=== PATIENT | female | born 1945 | race Caucasian/White ===

== ENCOUNTER 2016-11-06 07:22 | Inpatient (IN) | payer OTHER ==
[2016-11-06] VITALS (7 sets, daily range): BP systolic 109–143; BP diastolic 53–86
[~2016-11-06] VITALS: Ht 149.9 cm; Wt 57.3 kg
--- NOTE | 2016-11-06 07:48 | Progress Note ---
Subjective General Admission History and Physical Examination Patient Name: Larisa Medellin Admission Date: November 06, 2016 Primary Care Provider: Unknown Attending Physician: Braden Godwin M.D. Admitting Physician: Sudhir Stein M.D. SUBJECTIVE Historian: Patient, prior medical records Reliability: Poor Chief Complaint: Shortness of breath History of Present Illness: The patient is a 71-year-old white female with a significant past medical history of developmental delay who presented to [facility] as a transfer patient from [facility] ER secondary to respiratory failure. Secondary to the above, the patient was admitted by Sudhir Stein M.D. for further evaluation and treatment. The history of present illness apparently began on the day of admission when the patient had URI symptoms with associated cough and shortness of breath. Secondary to this, [facility]. Evaluation that time was consistent with viral URI with associated bronchospasm and hypoxemia. Secondary to the above the patient was transferred to [facility] for inpatient evaluation and treatment. No other history available at this time. PAST MEDICAL HISTORY Illnesses: 1. Developmental delay 2. Hypertension 3. Osteoporosis 4. Anemia Allergies: 1. Sulfa Medications: 1. Colace 100 mg by mouth daily 2. Lorazepam 0.5 mg by mouth twice a day when necessary agitation 3. Seroquel 25 mg by mouth twice a day 4. Rozerem 8 mg by mouth daily at bedtime when necessary Surgery: 1. None Injuries: 1. No significant Hospitalizations: 1. None FAMILY HISTORY Parents: 1. Father, , 46, cause unknown, 2. Mother, , 74, CHF Siblings: 1. Female, living, 78, healthy 2. Male, living, 61, COPD Children: 1. None Other significant family history: History of leukemia SOCIAL HISTORY 1. Marital Status: Single 2. Mormonism: None 3. Education: None 4. Employment History: None 5. Occupational health exposures: None HABITS 1. Tobacco: None 2. Drugs: None 3. Alcohol: None 4. Caffeine: None HEALTH SUPERVISION Item/Test 1. Unknown IMMUNIZATIONS: 1. Pneumococcal: Unknown 2. Influenza: Unknown 3. Tetanus: Unknown REVIEW OF SYSTEMS Remarkable for those things stated in the history of present illness and past medical history. Seventeen point review of system completed with the following notable findings: Unobtainable secondary to patient's mental status/developmental delay Physical Exam Vital Signs / I&Os Vital Signs Date Time Temp Pulse Resp B/P Pulse O2 O2 Flow FiO2 Ox Delivery Rate 11/06 0700 98.8 96 20 116/86 95 VentI-Mask 3.0 General Appearance Alert, Cooperative, No acute distress HEENT Atraumatic, PERRLA, EOMI, Moist mucous membranes Lungs bilateral diffuse rhonchi with expiratory wheezes present. No rales. Neck Supple, No JVD Cardiovascular Regular rate and rhythm, Normal S1 and S2 Abdomen Normal bowel sounds, Soft, No tenderness, No guarding Extremities No cyanosis, No clubbing, No edema Neurological Cranial nerves intact, Strength 5/5 x4 ext's Psych/Mental Status Confused, developmental delay with no meaningful communication. Assessment and Plan Problem List 1. Acute bronchitis, viral Status Acute Onset Date 11/06/16 Plan -Patient presents with findings of viral bronchitis with associated reactive airway disease -Mild hypoxemia easily corrected with nasal cannula O2 -Biofire assay-humanmetapneumovirus -DuoNeb, albuterol, corticosteroids and supplemental oxygen -Monitor 2. Reactive airway disease Status Acute Onset Date Unknown Plan -See above -Monitor 3. UTI (urinary tract infection) Status Acute Onset Date 11/06/16 Plan -Patient with findings of UTI -Rocephin 1 g IV daily -Monitor Current status: Fair, improved Anticipated discharge date: Anticipated discharge in 1-2 days with improved status Anticipated discharge placement: Assisted living Patient care time: Time spent in chart review, patient interview, physical exam, CPOE, and care documentation: 70 minutes Visit to patient today: 3 Complexity of care: High E&M Codes Admission: Inpt-High/91170
--- NOTE | 2016-11-06 07:48 | Progress Note ---
Subjective General Admission History and Physical Examination Patient Name: Larisa Medellin Admission Date: November 06, 2016 Primary Care Provider: Unknown Attending Physician: Braden Godwin M.D. Admitting Physician: Sudhir Stein M.D. SUBJECTIVE Historian: Patient, prior medical records Reliability: Poor Chief Complaint: Shortness of breath History of Present Illness: The patient is a 71-year-old white female with a significant past medical history of developmental delay who presented to [facility] as a transfer patient from [facility] ER secondary to respiratory failure. Secondary to the above, the patient was admitted by Sudhir Stein M.D. for further evaluation and treatment. The history of present illness apparently began on the day of admission when the patient had URI symptoms with associated cough and shortness of breath. Secondary to this, [facility]. Evaluation that time was consistent with viral URI with associated bronchospasm and hypoxemia. Secondary to the above the patient was transferred to [facility] for inpatient evaluation and treatment. No other history available at this time. PAST MEDICAL HISTORY Illnesses: 1. Developmental delay 2. Hypertension 3. Osteoporosis 4. Anemia Allergies: 1. Sulfa Medications: 1. Colace 100 mg by mouth daily 2. Lorazepam 0.5 mg by mouth twice a day when necessary agitation 3. Seroquel 25 mg by mouth twice a day 4. Rozerem 8 mg by mouth daily at bedtime when necessary Surgery: 1. None Injuries: 1. No significant Hospitalizations: 1. None FAMILY HISTORY Parents: 1. Father, , 46, cause unknown, 2. Mother, , 74, CHF Siblings: 1. Female, living, 78, healthy 2. Male, living, 61, COPD Children: 1. None Other significant family history: History of leukemia SOCIAL HISTORY 1. Marital Status: Single 2. Muslim: None 3. Education: None 4. Employment History: None 5. Occupational health exposures: None HABITS 1. Tobacco: None 2. Drugs: None 3. Alcohol: None 4. Caffeine: None HEALTH SUPERVISION Item/Test 1. Unknown IMMUNIZATIONS: 1. Pneumococcal: Unknown 2. Influenza: Unknown 3. Tetanus: Unknown REVIEW OF SYSTEMS Remarkable for those things stated in the history of present illness and past medical history. Seventeen point review of system completed with the following notable findings: Unobtainable secondary to patient's mental status/developmental delay Physical Exam Vital Signs / I&Os Vital Signs Date Time Temp Pulse Resp B/P Pulse O2 O2 Flow FiO2 Ox Delivery Rate 11/06 0700 98.8 96 20 116/86 95 VentI-Mask 3.0 General Appearance Alert, Cooperative, No acute distress HEENT Atraumatic, PERRLA, EOMI, Moist mucous membranes Lungs bilateral diffuse rhonchi with expiratory wheezes present. No rales. Neck Supple, No JVD Cardiovascular Regular rate and rhythm, Normal S1 and S2 Abdomen Normal bowel sounds, Soft, No tenderness, No guarding Extremities No cyanosis, No clubbing, No edema Neurological Cranial nerves intact, Strength 5/5 x4 ext's Psych/Mental Status Confused, developmental delay with no meaningful communication. Assessment and Plan Problem List 1. Acute bronchitis, viral Status Acute Onset Date 11/06/16 Plan -Patient presents with findings of viral bronchitis with associated reactive airway disease -Mild hypoxemia easily corrected with nasal cannula O2 -Biofire assay-humanmetapneumovirus -DuoNeb, albuterol, corticosteroids and supplemental oxygen -Monitor 2. Reactive airway disease Status Acute Onset Date Unknown Plan -See above -Monitor 3. UTI (urinary tract infection) Status Acute Onset Date 11/06/16 Plan -Patient with findings of UTI -Rocephin 1 g IV daily -Monitor Current status: Fair, improved Anticipated discharge date: Anticipated discharge in 1-2 days with improved status Anticipated discharge placement: Assisted living Patient care time: Time spent in chart review, patient interview, physical exam, CPOE, and care documentation: 70 minutes Visit to patient today: 3 Complexity of care: High E&M Codes Admission: Inpt-High/39773
[2016-11-06] MEDS ORDERED: VITAMIN D22000 UNIT PO (17:25)
[2016-11-06] MEDS ORDERED: ACETAMINOPHEN325 MG PO (17:26)
[2016-11-06] MEDS ORDERED: MIRALAX EQUIVAL17 GM PO (17:27)
[2016-11-06] MEDS ORDERED: MULTIVITAMIN1 TAB PO (17:27)
[2016-11-06] MEDS ORDERED: BAZA ANTIFUNGAL 2% TOP (17:28)
[2016-11-06] MEDS ORDERED: ROBAFEN100 MG/5 M PO (17:28)
[2016-11-06] MEDS ORDERED: FERROUS SULFAT324 M1 PO (17:30)
[2016-11-06] MEDS ORDERED: DOCUSATE SODIU100 MG PO (17:30)
[2016-11-06] MEDS ORDERED: KETOCONAZOLE2 % TOP (17:31)
[2016-11-06] MEDS ORDERED: ATIVAN0.5 MG PO (17:32)
[2016-11-06] MEDS ORDERED: SEROQUEL25 MG PO (17:32)
[2016-11-06] MEDS ORDERED: ROZEREM8 MG PO (17:33)
--- NOTE | 2016-11-06 19:48 | NUR ---
This patient is a developmentally delayed women who is pleasant and cooperative. Patient smiles and laughs and pays attention to what you are doing and can follow directions to stand up to go to the bathroom and get back in bed. Patient is able to drink water and swallow pills with no distress. Patient has been on clears but has been able to eat the jello with a spoon herself. Patient has a loose, productive cough, but I've been unable to visualize what is coming up because she swallows it. Windber cream to bottom to help prevent breakdown.
[2016-11-07 02:36] VITALS: BP 120/56
--- NOTE | 2016-11-07 04:14 | NUR ---
Pt awake most of night watching TV laughing, making verbal noises and the word "yeah" will reach out her arm towards water and drinks without problem, incontinent of urine, repositions self in bed, skin intact, on 2-3L n/c sats 94-95%, resp 18-23, bilateral upper anterior wheezing, strong moist cough, clear sputum which pt swallows. Bed alarm and call light for safety/fall prevention.
[2016-11-07 06:35] VITALS: BP 152/84
--- NOTE | 2016-11-07 07:42 | DIAGNOSTIC IMAGING REPORT ---
PROCEDURE: XR CHEST 1 VIEW INDICATION: RESP FAILURE TECHNIQUE: Portable AP view (0520 hours). COMPARISON: None. FINDINGS: Mild interstitial changes throughout the lungs. Borderline cardiomegaly. Mediastinum is normal. Right proximal humeral prosthesis. IMPRESSION: 1. Mild interstitial changes with borderline cardiomegaly. Consider interstitial pneumonitis (e.g., viral, Mycoplasma, aspiration) versus congestive heart failure/increased fluid status..
--- NOTE | 2016-11-07 07:57 | Progress Note ---
Subjective General Note Date: November 07, 2016 Admission Date: November 06, 2016 Hospital Day: 2 PCP: Douglas Fong M.D. Status: Inpatient Advanced Directive: DO NOT INTUBATE Room: 303 Brief History: The patient is a 71-year-old white female with a significant past medical history of developmental delay who presented to [facility] as a transfer patient from [facility] secondary to respiratory failure. Secondary to the above, the patient was admitted by Sudhir Stein M.D. for further evaluation and treatment. For other history present illness, past medical history, family history, social history, review of systems, and admission physical examination please see the patient's history and physical examination and ER visit note in the patient's medical record. Subjective: The patient remains pleasant. In no distress. Responds to questioning. No meaningful interaction verbally. Patient at baseline mental status. Patient requests: None Medications and Allergies Medications Current Medications Sig/Todd Start time Last Medication Dose Route Stop Time Status Admin Ceftriaxone Sodium/ 50 ML DAILY 11/07 0900 AC Dextrose IV Albuterol/Ipratropium 3 ML RTQ6H 11/06 1400 AC 11/07 IN 0032 Methylprednisolone 40 MG Q8HR 11/06 1400 AC 11/07 Sodium Succinate IV 0505 Enoxaparin Sodium 40 MG QAM 11/06 0900 AC 11/06 SC 0944 Famotidine/Sodium 50 ML Q12HR 11/06 0900 AC 11/06 Chloride IV 2045 Acetaminophen 650 MG Q4H PRN 11/06 0815 AC 11/06 PO 1711 Al Hydrox/Mg Hydrox/ 15 ML Q1H PRN 11/06 08 AC Simethicone PO Albuterol Sulfate 2.5 MG Q3H PRN 11/06 814 AC IN Atropine Sulfate 0.5 MG Q3MIN PRN 11/06 814 AC IV Lidocaine HCl See Dose ONCE PRN 11/06 814 AC Insts (1) IV Magnesium Hydroxide 10 ML DAILY PRN 11/06 08 AC PO Morphine Sulfate 2 MG Q3M PRN 11/06 814 AC IV Nitroglycerin 0.4 MG Q5M PRN 11/06 814 AC SL Ondansetron HCl 4 MG Q6H PRN 11/06 814 AC IV Sodium Chloride 1,000 ML ASDIRECTED 11/06 08 AC 11/07 IV 0505 Dose Instructions: (1)Lidocaine HCl: 1.5 MG/KG Allergies Coded Allergies: Sulfamethoxazole w/Trimethoprim (From ) (11/06/16) Physical Exam Vital Signs / I&Os Vital Signs Date Time Temp Pulse Resp B/P Pulse O2 O2 Flow FiO2 Ox Delivery Rate 11/07 0635 97.2 85 21 152/84 95 Nasal 2.0 Cannula 11/07 0236 99.1 100 21 120/56 94 Nasal 2.0 Cannula 11/07 0033 2.0 11/06 2247 99.1 100 23 117/53 93 Nasal 2.0 Cannula 11/06 1945 2.0 11/06 1903 2.0 11/06 1821 99.7 115 22 109/59 94 Nasal 2.0 Cannula 11/06 1445 99.3 97 20 143/67 92 Nasal 2.0 Cannula 11/06 1402 2.0 11/06 1105 99.3 97 23 131/75 97 Nasal 2.0 Cannula 11/06 0900 107 21 134/57 96 Nasal 2.0 Cannula 11/06 0856 2.0 11/06 0815 Nasal 2.0 Cannula 11/06 0800 88 18 128/72 94 Nasal 2.0 Cannula I&O 11/07 0000 11/06 1600 11/06 0800 Intake Total 765 480 0 Output Total 100 903 0 Balance 665 -423 0 General Appearance Alert, Cooperative, No acute distress Lungs diffuse rhonchi present. Expiratory wheezes present throughout. No rales noted Cardiovascular Regular rate and rhythm, Normal S1 and S2 Abdomen Normal bowel sounds, Soft, No tenderness Extremities No cyanosis, No clubbing Neurological Cranial nerves intact, No lateralizing signs Psych/Mental Status Mood normal LAB Results Laboratory Tests 11/07 11/07 11/06 11/06 11/06 0405 0020 1640 0909 0909 Chemistry Plasma Sodium (136 - 145 mmol/L) 144 Plasma Potassium (3.5 - 5.1 mmol/L) 3.6 Plasma Chloride (98 - 107 mmol/L) 108 CO2 (Enzymatic) (21 - 32 mmol/L) 27 BUN (7 - 18 mg/dL) 10 Creatinine (0.6 - 1.3 mg/dL) 0.7 Est GFR ( Amer) (mL/min) >60 Est GFR (Non-Af Amer) (mL/min) >60 Glucose (70 - 110 mg/dL) 114 Hemoglobin A1c % (4.5 - 6.2 %) 5.4 Plasma Calcium (8.5 - 10.1 mg/dL) 8.3 Plasma Magnesium (1.8 - 2.4 mg/dL) 1.6 Troponin (0.00 - 1.5 ng/mL) <0.05 <0.05 <0.05 Coagulation D-Dimer, Quantitative (0.27 - 0.52 ug/mLFEU) 0.84 Hematology WBC (4.5 - 11.5 K/uL) 6.4 8.9 RBC (4.00 - 5.20 M/uL) 3.32 3.67 Hgb (12.0 - 16.0 gm/dL) 9.9 11.1 Hct (36.0 - 46.0 %) 30.6 34.1 MCV (80 - 100 fL) 92 93 MCH (26 - 34 pg) 30 30 RDW (11.6 - 14.8 %) 17.2 17.2 Neut % (Auto) (50 - 75 %) 58 60 Lymph % (Auto) (25 - 40 %) 8 1 Barry % (Auto) (3 - 14 %) 2 1 Eos % (Auto) (0 - 4 %) 0 0 Baso % (Auto) (0 - 2 %) 0 0 Band Neutrophils % (0 - 8 %) 32 38 Metamyelocytes % (0 - 1 %) 0 0 Myelocytes (0 - 1 %) 0 0 Other Cell Type 0 0 Plt Count, EDTA (150 - 400 K/uL) 78 73 Hypochromic-Microcytic 1+ 2+ Anisocytosis (manual) 1+ 2+ Target Cells 1+ Tear Drop Cells 1+ PUBS MCHC (31 - 37 g/dL) 32 33 11/06 11/06 0900 0820 Blood Gas Sample Site LR Total CO2 (24.0 - 30.0 mmol/L) 30.3 ABG pH (7.35 - 7.45) 7.45 ABG pCO2 at Pt Temp (35 - 45 mmHg) 42.2 ABG pO2 at Pt Temp (60.0 - 80.0 mmHg) 79.0 ABG HCO3 (20.0 - 26.0 mmol/L) 29.0 ABG O2 Sat Calc/Aba (95.1 - 100.0 %) 97.0 ABG Base Excess (-6.0 - -6.0 mmol/L) 4.5 ABG Reduced Hgb (%) 2.9 ABG Carboxyhemoglobin (0.5 - 1.5 %) 1.2 ABG Methemoglobin (0.4 - 1.5 %) 0.6 Jorge Test YES Other Total Hgb (12.0 - 16.0 g/dL) 11.0 A-a O2 Gradient (7.0 - 14.0 mmHg) 67.5 Hgb O2 Saturation (95.0 - 100.0 %) 95.3 Respiration Rate (/MIN) 24 O2 Liters/Min (0 - 20 L/MIN) 2 Vent Mode SB FiO2 (20 - 101 %) 28 Urines Urine Color YELLOW Urine Appearance CLOUDY Urine pH (5.0 - 8.0) 6.0 Ur Specific [place] (1.010 - 1.030) 1.015 Urine Protein (NEGATIVE) NEGATIVE Urine Ketones (NEGATIVE) TRACE Urine Blood (NEGATIVE) TRACE-INTACT Urine Nitrite (NEGATIVE) POSITIVE Urine Bilirubin (NEGATIVE) NEGATIVE Urine Urobilinogen (0.2 - 1.0 EU/dL) 0.2 Ur Leukocyte Esterase (NEGATIVE) TRACE Urine RBC (0 - 1 rbc/hpf) NONE SEEN Urine WBC (0 - 1 wbc/hpf) 5-10 Ur Epithelial Cells (0 - 5 EPI/hpf) NONE SEEN Urine Bacteria (NONE SEEN) MANY (4+) Urine Glucose (NEGATIVE) NEGATIVE Urine Comment CULTURE INDICATED Microbiology Date/Time Procedure - Status Source Growth 11/07 0001 MRSA Screen - RECD NASAL 11/06 1230 MRSA Screen - RECD NASAL 11/06 0900 Urine Culture - RECD URINE CC Assessment and Plan Problem List 1. Acute bronchitis, viral Status Acute Onset Date 11/06/16 Plan -Patient with viral bronchitis/pneumonitis -Status stable -Hypoxemia improving -Continue present therapy with bronchodilators, corticosteroids 2. Reactive airway disease Status Acute Onset Date Unknown Plan -See above -Status stable 3. UTI (urinary tract infection) Status Acute Onset Date 11/06/16 Plan -Patient with findings of UTI -C&S shows gram negative rods, await final C&S -Continue Rocephin -Monitor 4. Hypomagnesemia Status Acute Onset Date 11/06/16 Plan -Patient with findings of hypomagnesemia -Slow-Mag one by mouth 3 times a day -Monitor Current status: Fair, stable Anticipated discharge date: Anticipated discharge in 2 days with improved status Anticipated discharge placement: Assisted living Patient care time: Time spent in chart review, patient interview, physical exam, CPOE, and care documentation: 25 minutes Visit to patient today: 1 Complexity of care: Moderate E&M Codes Rounding: Inpt-Moderate/[id number]
[2016-11-07 10:05] VITALS: BP 159/91
--- NOTE | 2016-11-07 10:48 | NUR ---
PT HAD A SCANT AMOUNT OF DRIED BLOOD IN L NARE - REMOVED O2 NC, APPLIED MOISTURIZER TO BILAT NARES AND AM COMPLETING AN O2 TRIAL. PT IS NOW ON RA SATTING BETWEEN 92-94%. WCTM. IF O2 NEEDED, WILL CONTACT RT FOR HUMIDIFIED O2.
--- NOTE | 2016-11-07 12:24 | NUR ---
DURING LUNCH, PT DESATTED TO 89-90. APPLIED HUMIDIFIED O2 AT 2L. O2 SATS NOW 93-94%
--- NOTE | 2016-11-07 13:59 | NUR ---
PT UP IN CHAIR SATTING AT 94% ON ROOM AIR - TOLORATING WELL.
[2016-11-07 14:32] VITALS: BP 127/68
[2016-11-07 18:25] VITALS: BP 120/58
--- NOTE | 2016-11-07 21:42 | NUR ---
Pt having increased wheezing/coughing and resp rate high 20s sats on 2L 94-95%. notified hospitalist. New orders received. Continue to monitor pt resp status and intake/output.
[2016-11-08] VITALS (7 sets, daily range): BP systolic 130–145; BP diastolic 62–82
--- NOTE | 2016-11-08 03:35 | NUR ---
Pt has diursed greater than 1000 cc via brief, wheezing has decreased and resp rate low 20's, currently on 3L n/c, sleeping intermittantly. Bed alarm on for safety/fall prevention.
--- NOTE | 2016-11-08 08:07 | Progress Note ---
Subjective General Note Date: November 08, 2016 Admission Date: November 06, 2016 Hospital Day: 3 PCP: Douglas Fong M.D. Status: Inpatient Advanced Directive: DO NOT INTUBATE Room: 303 Brief History: The patient is a 71-year-old white female with a significant past medical history of developmental delay who presented to [facility] as a transfer patient from [facility] secondary to respiratory failure. Secondary to the above, the patient was admitted by Sudhir Stein M.D. for further evaluation and treatment. For other history present illness, past medical history, family history, social history, review of systems, and admission physical examination please see the patient's history and physical examination and ER visit note in the patient's medical record. Subjective: The patient remains pleasant. In no distress. Responds to questioning. No meaningful interaction verbally. Patient at baseline mental status. Her respiratory status is stable Patient requests: None Medications and Allergies Medications Current Medications Sig/Todd Start time Last Medication Dose Route Stop Time Status Admin Ceftriaxone Sodium/ 50 ML DAILY 11/08 0900 AC Dextrose IV Methylprednisolone 80 MG Q8HR 11/07 2200 AC 11/08 Sodium Succinate IV 0520 Amoxicillin 250 MG TID 11/07 1400 CAN PO Magnesium Chloride 535 MG TID 11/07 1400 AC 11/08 PO 0520 Quetiapine Fumarate 25 MG BID 11/07 0930 AC 11/07 PO 2133 Albuterol/Ipratropium 3 ML RTQ6H 11/06 1400 AC 11/08 IN 0759 Enoxaparin Sodium 40 MG QAM 11/06 0900 AC 11/07 SC 0908 Famotidine/Sodium 50 ML Q12HR 11/06 0900 AC 11/07 Chloride IV 2132 Acetaminophen 650 MG Q4H PRN 11/06 0815 AC 11/06 PO 1711 Al Hydrox/Mg Hydrox/ 15 ML Q1H PRN 11/06 0815 AC Simethicone PO Albuterol Sulfate 2.5 MG Q3H PRN 11/06 0815 AC 11/07 IN 1756 Atropine Sulfate 0.5 MG Q3MIN PRN 11/06 814 AC IV Lidocaine HCl See Dose ONCE PRN 11/06 814 AC Insts (1) IV Magnesium Hydroxide 10 ML DAILY PRN 11/06 08 AC PO Morphine Sulfate 2 MG Q3M PRN 11/06 814 AC IV Nitroglycerin 0.4 MG Q5M PRN 11/06 814 AC SL Ondansetron HCl 4 MG Q6H PRN 11/06 814 AC IV Sodium Chloride 1,000 ML ASDIRECTED 11/06 814 AC 11/08 IV 0520 Dose Instructions: (1)Lidocaine HCl: 1.5 MG/KG Allergies Coded Allergies: Sulfamethoxazole w/Trimethoprim (From [facility]) (11/06/16) Physical Exam Vital Signs / I&Os Vital Signs Date Time Temp Pulse Resp B/P Pulse O2 O2 Flow FiO2 Ox Delivery Rate 11/08 0725 98.8 73 19 145/73 91 Nasal 3.0 Cannula 11/08 0251 98.1 84 22 133/70 96 Nasal 3.0 Cannula 11/08 0240 3.0 11/08 0024 97.5 81 20 140/78 96 Nasal 2.0 Cannula 11/07 1951 2.0 11/07 1950 2.0 11/07 1825 97.5 99 21 120/58 95 Nasal 2.0 Cannula 11/07 1756 2.0 11/07 1432 98.4 88 24 127/68 95 Nasal 2.0 Cannula 11/07 1349 2.0 11/07 1005 98.4 93 28 159/91 95 Nasal 2.0 Cannula 11/07 0850 Nasal 2.0 Cannula 11/07 0811 2.0 I&O 11/08 0000 11/07 1600 11/07 0800 Intake Total 6227 565 1877 Output Total 600 Balance 6502 027 2511 General Appearance Alert, Cooperative, No acute distress Lungs Diffuse rhonchi, diffuse expiratory wheezes Cardiovascular Regular rate and rhythm, Normal S1 and S2 Abdomen Normal bowel sounds, Soft, No tenderness Extremities No cyanosis, No clubbing Neurological Cranial nerves intact, No lateralizing signs Psych/Mental Status Mood normal LAB Results Laboratory Tests 11/08 519 Chemistry Plasma Sodium (136 - 145 mmol/L) 146 Plasma Potassium (3.5 - 5.1 mmol/L) 3.9 Plasma Chloride (98 - 107 mmol/L) 110 CO2 (Enzymatic) (21 - 32 mmol/L) 26 BUN (7 - 18 mg/dL) 24 Creatinine (0.6 - 1.3 mg/dL) 0.9 Est GFR ( Amer) (mL/min) >60 Est GFR (Non-Af Amer) (mL/min) >60 Glucose (70 - 110 mg/dL) 121 Plasma Calcium (8.5 - 10.1 mg/dL) 7.7 Plasma Magnesium (1.8 - 2.4 mg/dL) 2.0 Hematology WBC (4.5 - 11.5 K/uL) 6.8 RBC (4.00 - 5.20 M/uL) 3.18 Hgb (12.0 - 16.0 gm/dL) 9.4 Hct (36.0 - 46.0 %) 29.7 MCV (80 - 100 fL) 94 MCH (26 - 34 pg) 30 RDW (11.6 - 14.8 %) 17.6 Neut % (Auto) (50 - 75 %) 85.8 Lymph % (Auto) (25 - 40 %) 7.1 [place] % (Auto) (3 - 14 %) 7.1 Eos % (Auto) (0 - 4 %) 0 Baso % (Auto) (0 - 2 %) 0 Plt Count, EDTA (150 - 400 K/uL) 99 PUBS MCHC (31 - 37 g/dL) 32 Assessment and Plan Problem List 1. Acute bronchitis, viral Status Acute Onset Date 11/06/16 Plan -Persistent cough, wheezing -Status stable to slightly improved -Monitor 2. Reactive airway disease Status Acute Onset Date Unknown Plan -Persistent bronchospasm but overall status improved -DuoNeb, albuterol, Solu-Medrol, supplemental oxygen as necessary -Monitor 3. UTI (urinary tract infection) Status Acute Onset Date 11/06/16 Plan -Urine C&S positive for Escherichia coli -Escherichia coli sensitive to all checked antimicrobials -Continue Rocephin -Switch to oral medications if stable in a.m. 4. Hypomagnesemia Status Acute Onset Date 11/06/16 Plan -Resolved -Magnesium 2.0 -Monitor Current status: Fair, stable Anticipated discharge date: Anticipated discharge in 2 days Anticipated discharge placement: Assisted living Patient care time: Time spent in chart review, patient interview, physical exam, CPOE, and care documentation: 25 minutes Visit to patient today: 1 Complexity of care: Moderate E&M Codes Rounding: Inpt-Moderate/[id number]
--- NOTE | 2016-11-08 10:07 | NUR ---
Patient sitting up in chair at this time. Up to chair 1 person assistance. No distress or discomfort noted at this time. Patient is a developmentally delayed women who smiles and laughs and pays attention to what you are doing and can follow simple directions/commands. Patient unable to answer simple questions and is non-communincative. Speech garbled when patient does communicate. Patient tolerating good PO intake and able to drink water and swallow pills with no distress. Patient has a loose/wet/wheezy cough noted. Exp wheeze/coarse lung sounds noted. IV RW patent 60cc/hr and LAC saline locked. Patient up to BSC 1 person assistance but is inc of urine and stool at times. Uses attends. Will continue to put pink cream on bottom to help prevent skin breakdown. Waffle mattress on bed and chair. No complaints at this time. Pleasant and cooperative with care. Will continue to monitor.
[2016-11-09 02:26] VITALS: BP 130/79
--- NOTE | 2016-11-09 02:37 | NUR ---
Pt. is resting in bed at this time, awake. Laughs randomly. Pt. voice is garbled/non verbal but follows simple commands. Pulling shirt off frequently, occasionally tugs at IV but she stops when reminded not to tug at IV. Does not seem to be in distress/pain at this time. Assessment completed. Lungs continue to have expir. wheezes and still has a wet cough, pt. swallow sputum after coughing so unable to assess sputum. Pt. is incontinent of urine and stool. Had large amount of urine output in attends, changed attends and changed bedding. Applied barrier cream to bottom. Asking pt. if she needs to use the toilet every 2 hours. Bed alarm on. WC.
[2016-11-09 07:04] VITALS: BP 158/71
--- NOTE | 2016-11-09 07:26 | Progress Note ---
Subjective General Note Date: November 09, 2016 Admission Date: November 06, 2016 Hospital Day: 4 PCP: Douglas Fong M.D. Status: Inpatient Advanced Directive: DO NOT INTUBATE Room: 303 Brief History: The patient is a 71-year-old white female with a significant past medical history of developmental delay who presented to [facility] as a transfer patient from [facility] secondary to respiratory failure. Secondary to the above, the patient was admitted by Sudhir Stein M.D. for further evaluation and treatment. For other history present illness, past medical history, family history, social history, review of systems, and admission physical examination please see the patient's history and physical examination and ER visit note in the patient's medical record. Subjective: The patient remains pleasant. In no distress. Responds to questioning. No meaningful interaction verbally. Patient at baseline mental status. Her respiratory status is stable Patient requests: None Medications and Allergies Medications Current Medications Sig/Todd Start time Last Medication Dose Route Stop Time Status Admin Ceftriaxone Sodium/ 50 ML DAILY 11/08 0900 AC 11/08 Dextrose IV 0903 Methylprednisolone 80 MG Q8HR 11/07 2200 AC 11/09 Sodium Succinate IV 0651 Magnesium Chloride 535 MG TID 11/07 1400 AC 11/09 PO 0651 Quetiapine Fumarate 25 MG BID 11/07 0930 AC 11/08 PO 2135 Albuterol/Ipratropium 3 ML RTQ6H 11/06 1400 AC 11/09 IN 0246 Enoxaparin Sodium 40 MG QAM 11/06 0900 AC 11/08 SC 0903 Famotidine/Sodium 50 ML Q12HR 11/06 0900 AC 11/08 Chloride IV 2134 Acetaminophen 650 MG Q4H PRN 11/06 0815 AC 11/06 PO 1711 Al Hydrox/Mg Hydrox/ 15 ML Q1H PRN 11/06 08 AC Simethicone PO Albuterol Sulfate 2.5 MG Q3H PRN 11/06 0815 AC 11/07 IN 1756 Atropine Sulfate 0.5 MG Q3MIN PRN 11/06 814 AC IV Lidocaine HCl See Dose ONCE PRN 11/06 814 AC Insts (1) IV Magnesium Hydroxide 10 ML DAILY PRN 11/06 814 AC PO Morphine Sulfate 2 MG Q3M PRN 11/06 814 AC IV Nitroglycerin 0.4 MG Q5M PRN 11/06 814 AC SL Ondansetron HCl 4 MG Q6H PRN 11/06 814 AC IV Sodium Chloride 1,000 ML ASDIRECTED 11/06 814 AC 11/09 IV 0033 Dose Instructions: (1)Lidocaine HCl: 1.5 MG/KG Allergies Coded Allergies: Sulfamethoxazole w/Trimethoprim (From ) (11/06/16) Physical Exam Vital Signs / I&Os Vital Signs Date Time Temp Pulse Resp B/P Pulse O2 O2 Flow FiO2 Ox Delivery Rate 11/09 0704 97.3 68 18 158/71 92 Nasal 2.0 Cannula 11/09 0247 2.0 11/09 0226 97.5 76 22 130/79 91 Room Air 11/09 0027 2.0 11/08 2234 98.1 79 22 130/72 92 Room Air 11/08 1806 97.5 85 26 142/78 94 Room Air 11/08 1715 Room Air 11/08 1433 98.2 86 13 135/62 94 Nasal 2.0 Cannula 11/08 1323 2.0 11/08 1106 98.4 89 26 133/82 95 Nasal 2.0 Cannula 11/08 0800 2.0 11/08 0730 Nasal 2.0 Cannula 11/08 0725 98.8 73 19 145/73 91 Nasal 3.0 Cannula I&O 11/09 0000 11/08 1600 11/08 0800 Intake Total 720 220 464 Output Total 787 946 0674 Balance 180 -380 -884 General Appearance Alert, Cooperative, No acute distress Lungs Diffuse rhonchi, mild-moderate expiratory wheezes Cardiovascular Regular rate and rhythm, Normal S1 and S2 Abdomen Normal bowel sounds, Soft, No tenderness Extremities No cyanosis, No clubbing, No edema Neurological Grossly normal Psych/Mental Status Mood normal, mental status unchanged-patient happy, in no distress, minimal meaningful interaction Assessment and Plan Problem List 1. Acute bronchitis, viral Status Acute Onset Date 11/06/16 Plan -Stable -Persistent bronchitis/bronchospasm-mild improvement -Patient in no distress -O2 sats 90-91% on 2 L nasal cannula -Recheck CBC with manual differential, chest x-ray, Procalcitonin. -Monitor 2. Reactive airway disease Status Acute Onset Date Unknown Plan -See above -Continue present therapy -Switch to oral corticosteroids -Recheck chest x-ray, CBC, Procalcitonin secondary to minimal improvement -Continue present bronchodilator treatment 3. UTI (urinary tract infection) Status Acute Onset Date 11/06/16 Plan -We'll check labs as above -Consider switch to oral medications today or in a.m. based on above laboratory testing -Urine C&S grew out Escherichia coli sensitive to a variety of antimicrobials -Rocephin 1 g IV daily 4. Hypomagnesemia Status Acute Onset Date 11/06/16 Plan -Resolved -Continue Slow-Mag one by mouth 3 times a day 5. Hypernatremia Status Acute Plan -Patient with mild hyponatremia -Hold Lasix -IV fluid therapy with D5W -Monitor Current status: Fair, unchanged Anticipated discharge date: Anticipated discharge in 1-2 days with improved status Anticipated discharge placement: Assisted living Patient care time: Time spent in chart review, patient interview, physical exam, CPOE, and care documentation: 25 minutes Visit to patient today: 1 Complexity of care: Moderate E&M Codes Rounding: Inpt-Moderate/15021
[2016-11-09 10:14] VITALS: BP 121/65
--- NOTE | 2016-11-09 10:37 | NUR ---
PATIENT HAD UNEVENTFUL MORNING, COOPERATIVE AND PLEASANT, CALM WITH CARES. BREATHING NON-LABORED, LUNG SOUNDS WHEEZY AND COARSE THROUGOUT. SEEN BY MD THIS A.M. BED ALARM AND CHAIR ALARM IN PLACE AND FUNCTIONING PROPERLY. WCTM
--- NOTE | 2016-11-09 13:57 | DIAGNOSTIC IMAGING REPORT ---
PROCEDURE: XR CHEST 1 VIEW INDICATION: Pneumonia TECHNIQUE: Portable AP view 01:34 p.m. COMPARISON: 11/07/1969 and 11/06/2016 chest FINDINGS: New right upper lobe infiltrate and consolidation. Overall no change in the interstitial changes and the borderline cardiomegaly. Impression: 1. new right upper lobe linear infiltrate.
--- NOTE | 2016-11-09 14:07 | NUR ---
NUTRITION ASSESSMENT: S: Pt admitted with dx/o hypoxia. Pt with PMH which includes: developmental delay, HTN, osteoporosis, anemia. PO intake last few days ~50-100%. [facility] soft diet in place for ease of chewing. O: Diet Rx: Low sodium mechanical soft NKFA Wts: 57.3 kg Ht: 59" BMI: 25.8 IBW: 43-55 kg Est Kcals: ~6058-9969 kcals per day Est Pro: ~55-66 g per day Est Fluids: ~1650 mls per day Meds Incl: KCL, prednisone, mag choloride, KCL, quetaipaine, inhalers, see eMar for complete list/details. Labs Incl: (11/09) glucose 223, BUN 33, Creat 0.9, Na+ 147. K+ 3.3, HCT 29.7, HGB 9.8, MCV 91, MCH 30, (11/06) A1c 5.4 ([address]) Skin: Boubacar Score 15; skin fragile, waffle overlay, some bruises (see skin integ assess). Accuchecks: 144-222 A: Pt appears to hav a good appetite. Pt is on low sodium diet 2/2 hx/o HTN Rev'd meds and labs. May see elevated glucose labs 2/2 prednisone. Rec continue to monitor accuchecks. Noted A1c wnl. Rec continue current nutrition plan of care at [facility] as appears appropraite and tolerated. RD to follow up prn/protocol. P: 1. continue same. 2. RD to follow up prn/protocol.
[2016-11-09 14:12] VITALS: BP 128/56
--- NOTE | 2016-11-09 18:57 | NUR ---
Patient has been pleasant and cooperative all day. Has started pulling at nasal cannula and her clothes more than she was previously. Will continue to monitor patient.
[2016-11-09 19:12] VITALS: BP 137/78
--- NOTE | 2016-11-09 21:13 | NUR ---
Pt. is alert, pleasant, cooperative, continues to be nonverbal as she has hx. of developmental delay. Laughs and smiles, makes sounds. Continues to occas. pull at her oxygen tubing, but when reminded pt. stops pulling for a while. Follow simple commands. Is not in distress, does not appear to be in pain. Lungs continue to have expir. wheezes. Bed alarm on at all times. IV fluids infusing without issues. Pt. is incontinent, offering toileting frequently. WCTM.
[2016-11-09 23:14] VITALS: BP 161/92
[2016-11-10] VITALS (7 sets, daily range): BP systolic 124–157; BP diastolic 70–124
--- NOTE | 2016-11-10 03:30 | NUR ---
Pt. is alert and awake at this time. Does not appear to be in distress. Laughs occasionally/holding her jojo bear. Takes off her shirt/02 tubing occasionally. Oxygen is back on. Pt. had large BM, changed attends. Bed alarm on. Continues to have wet cough. Expir wheezes heard. WCTM.
--- NOTE | 2016-11-10 08:29 | Progress Note ---
Subjective General Note Date: November 10, 2016 Admission Date: November 06, 2016 Hospital Day: 5 PCP: Douglas Fong M.D. Status: Inpatient Advanced Directive: DO NOT INTUBATE Room: 303 Brief History: The patient is a 71-year-old white female with a significant past medical history of developmental delay who presented to [facility] as a transfer patient from [facility] secondary to respiratory failure. Secondary to the above, the patient was admitted by Sudhir Stein M.D. for further evaluation and treatment. For other history present illness, past medical history, family history, social history, review of systems, and admission physical examination please see the patient's history and physical examination and ER visit note in the patient's medical record. Subjective: The patient remains pleasant and happy this morning. In no distress. Responds to questioning. No meaningful interaction verbally. Patient at baseline mental status. Her respiratory status is stable. Patient requests: None Medications and Allergies Medications Current Medications Sig/Todd Start time Last Medication Dose Route Stop Time Status Admin Levofloxacin/Dextrose 150 ML Q48H 11/11 09 AC IV Pantoprazole Sodium 40 MG 0600 11/10 0600 AC 11/10 Sesquihydrate PO 0512 Levofloxacin/Dextrose 150 ML 1630 11/09 1630 AC 11/09 IV 1648 Potassium Chloride 30 MEQ Q10H 11/09 1400 AC 11/10 Dextrose/Water 1,000 ML IV 0229 Potassium Chloride 20 MEQ DAILY 11/09 1345 AC 11/10 PO 0813 Prednisone 20 MG BID 11/09 1345 AC 11/10 PO 0813 Magnesium Chloride 535 MG TID 11/07 1400 AC 11/10 PO 0511 Quetiapine Fumarate 25 MG BID 11/07 0930 AC 11/10 PO 0813 Albuterol/Ipratropium 3 ML RTQ6H 11/06 1400 AC 11/10 IN 0733 Enoxaparin Sodium 40 MG QAM 11/06 0900 AC 11/10 SC 0813 Acetaminophen 650 MG Q4H PRN 11/06 0815 AC 11/06 PO 1711 Al Hydrox/Mg Hydrox/ 15 ML Q1H PRN 11/06 0815 AC Simethicone PO Albuterol Sulfate 2.5 MG Q3H PRN 11/06 0815 AC 11/07 IN 1756 Atropine Sulfate 0.5 MG Q3MIN PRN 11/06 814 AC IV Lidocaine HCl See Dose ONCE PRN 11/06 814 AC Insts (1) IV Magnesium Hydroxide 10 ML DAILY PRN 11/06 814 AC PO Morphine Sulfate 2 MG Q3M PRN 11/06 814 AC IV Nitroglycerin 0.4 MG Q5M PRN 11/06 814 AC SL Ondansetron HCl 4 MG Q6H PRN 11/06 814 AC IV Dose Instructions: (1)Lidocaine HCl: 1.5 MG/KG Allergies Coded Allergies: Sulfamethoxazole w/Trimethoprim (From ) (11/06/16) Physical Exam Vital Signs / I&Os Vital Signs Date Time Temp Pulse Resp B/P Pulse O2 O2 Flow FiO2 Ox Delivery Rate 11/10 0726 98.8 76 18 156/82 93 Room Air 11/10 0239 97.9 79 20 149/81 90 Room Air 11/10 0138 2.0 11/09 2314 98.2 77 20 161/92 97 Nasal 2.0 Cannula 11/09 2116 2.0 11/09 1926 2.0 11/09 1912 97.9 83 22 137/78 91 Nasal 2.0 Cannula 11/09 1611 2.0 11/09 1412 96.6 76 22 128/56 96 Nasal 2.0 Cannula 11/09 1100 Nasal 2.0 Cannula 11/09 1014 97.3 87 22 121/65 90 Nasal 2.0 Cannula I&O 11/10 0000 11/09 1600 11/09 0800 Intake Total 940 240 368 Output Total 338 527 Balance 940 -98 -159 General Appearance Alert, Cooperative, No acute distress Lungs Clear to auscultation, diffuse rhonchi, mild expiratory wheezes Cardiovascular Regular rate and rhythm, Normal S1 and S2 Abdomen Normal bowel sounds, Soft, No tenderness Extremities No cyanosis, No clubbing Neurological Grossly normal Psych/Mental Status Mood normal, mental status stable. Unchanged. LAB Results Laboratory Tests 11/09 11/09 11/09 11/09 11/09 0935 0935 0935 0935 0900 Chemistry Plasma Sodium (136 - 145 mmol/L) 147 Cancelled Plasma Potassium (3.5 - 5.1 mmol/L) 3.3 Cancelled Plasma Chloride (98 - 107 mmol/L) 110 Cancelled CO2 (Enzymatic) (21 - 32 mmol/L) 28 Cancelled BUN (7 - 18 mg/dL) 33 Cancelled Creatinine (0.6 - 1.3 mg/dL) 0.9 Cancelled Est GFR ( Amer) (mL/min) >60 Cancelled Est GFR (Non-Af Amer) (mL/min) >60 Cancelled Glucose (70 - 110 mg/dL) 223 Cancelled Plasma Calcium (8.5 - 10.1 mg/dL) 8.6 Cancelled Iron (35 - 150 ug/dL) 52 TIBC (260 - 445 ug/dL) 223 Iron Saturation (15 - 50 %) 23 B-Natriuretic Peptide (5 - 100 pg/ml) 327 Vitamin B12 (211 - 946 pg/mL) 1641 Folate (>3.0 ng/mL) 23.0 Procalcitonin (0 - 0.5 ng/mL) <0.5 Hematology WBC (4.5 - 11.5 K/uL) 7.6 RBC (4.00 - 5.20 M/uL) 3.25 Hgb (12.0 - 16.0 gm/dL) 9.8 Hct (36.0 - 46.0 %) 29.7 MCV (80 - 100 fL) 91 MCH (26 - 34 pg) 30 RDW (11.6 - 14.8 %) 17.1 Neut % (Auto) (50 - 75 %) 81 Lymph % (Auto) (25 - 40 %) 8 [place] % (Auto) (3 - 14 %) 4 Eos % (Auto) (0 - 4 %) 0 Baso % (Auto) (0 - 2 %) 0 Band Neutrophils % (0 - 8 %) 7 Metamyelocytes % (0 - 1 %) 0 Myelocytes (0 - 1 %) 0 Other Cell Type 0 Plt Count, EDTA (150 - 400 K/uL) 118 Anisocytosis (manual) 1+ PUBS MCHC (31 - 37 g/dL) 33 Assessment and Plan Problem List 1. Reactive airway disease Status Acute Onset Date Unknown Plan -Persistent diffuse rhonchi with expiratory wheezes -Status unchanged -Persistent mild hypoxemia requiring supplemental oxygen -Continue DuoNeb, albuterol, and oral prednisone -Possible discharge in 1-2 days 2. UTI (urinary tract infection) Status Acute Onset Date 11/06/16 Plan -UTI with Escherichia coli sensitive to Levaquin -IV Levaquin -Switch to oral Levaquin in a.m. if stable 3. Hypomagnesemia Status Acute Onset Date 11/06/16 Plan -Findings of hypomagnesemia -Recheck -Oral magnesium [id number] one by mouth 3 times a day 4. Hypernatremia Status Acute Plan -Mild -IV fluids D5W with potassium 20 mEq per liter -Recheck today -Monitor 5. Thrombocytopenia Status Acute Onset Date Unknown Plan -Patient with mild thrombocytopenia -Platelet count improving -Monitor 6. Pneumonia Status Acute Onset Date Unknown Plan -Chest x-ray with infiltrate -Levaquin 750 mg IV daily -Monitor -Switch to oral meds in a.m. Current status: Fair, stable Anticipated discharge date: Anticipated discharge in 1-2 days Anticipated discharge placement: Assisted living Patient care time: Time spent in chart review, patient interview, physical exam, CPOE, and care documentation: 25 minutes Visit to patient today: 1 Complexity of care: Moderate E&M Codes Rounding: Inpt-Moderate/59257
--- NOTE | 2016-11-10 12:04 | NUR ---
NOTIFIED OF BLOOD GLUCOSE 159. NO NEW ORDERS AT THIS TIME
--- NOTE | 2016-11-10 18:23 | NUR ---
NOTIFIED DR CLEMONS OF BNP LEVEL, RECIEVED ORDERS TO DC THE IVF.
--- NOTE | 2016-11-10 20:36 | NUR ---
Pt transferred from 309 to room 306 via w/c. 2 assist pivot transfer. Happy laughing, T=99.1 otherwise VSS, report received form [facility] INGRAM.
[2016-11-11 04:17] VITALS: BP 164/74
--- NOTE | 2016-11-11 05:09 | NUR ---
Pt continues to be cooperative, laughing enjoying stuffed animals and TV, will say "good dog", follows directions in regards to turning in bed, large incontinent briefs and bed linen changes, pt will scratch hips,legs and thigh barrier cream applied. Taking po meds and water without issues. Bed alarm for safety/fall prevention. Strong moist cough with intermittant audible wheezes, 1-2L while asleep for sats 88-90 on RA,
[2016-11-11 06:45] VITALS: BP 154/82
[2016-11-11 11:22] VITALS: BP 122/84
--- NOTE | 2016-11-11 12:59 | NUR ---
Patient has been up sitting in her chair most of the day. Went down to ultrasound for echo, but patient was unable to hold still, notified Dr. Pelaez. Will continue to monitor patient.
--- NOTE | 2016-11-11 13:00 | NUR ---
NUTRITION FOLLOW UP NOTE: Pt appears to have a good appetite. 50-100% of mech soft diet. Wts fluctuating but no significant changes noted. Blood glucose labs rev'd. Pt continues on prednisone; continue to monitor. RD to follow up and monitor nutrition indices prn/protocol.
[2016-11-11 14:56] VITALS: BP 145/77
--- NOTE | 2016-11-11 15:02 | NUR ---
Pt with Boubacar score of 15, has WAFFLE mattress on bed and WAFFLE pad on chair, vigilent repositiong by staff, will continue to monitor.
--- NOTE | 2016-11-11 17:37 | NUR ---
GAVE REPORT TO COCO, WILL SEND PATIENT DOWN SOON SHE IS DONE WITH DINNER. ASKED NURSE TO FOLLOW UP ON IV WRAPPING TO MAKE SURE IT'S NOT TOO TIGHT.
--- NOTE | 2016-11-11 18:15 | Progress Note ---
Subjective General The patient is a 71-year-old white female with a significant past medical history of developmental delay who presented to [facility] as a transfer patient from [facility] secondary to respiratory failure. Patient was doing well overnight, Patient has a very poor cough ability and is unable to clear her secretions. Patient is otherwise stable and in good spirits Physical Exam Vital Signs / I&Os Vital Signs Date Time Temp Pulse Resp B/P Pulse O2 O2 Flow FiO2 Ox Delivery Rate 11/11 1456 99.1 110 20 145/77 90 Room Air 11/11 1122 99.1 102 20 122/84 93 Room Air 0.0 11/11 0730 Room Air 0.0 11/11 0645 99.0 84 22 154/82 94 Room Air 0.0 11/11 0417 98.2 88 17 164/74 92 Room Air 11/10 2357 99.0 83 17 152/72 90 Room Air 11/10 2006 99.1 103 17 124/71 94 Room Air I&O 11/10 0800 11/10 1600 11/11 0000 Intake Total 1174 1069 240 Output Total 334 1297 888 Balance 840 228 -648 General Appearance Alert, No acute distress HEENT Atraumatic, PERRLA, EOMI Lungs Clear to auscultation, Normal air movement Cardiovascular Regular rate and rhythm, Normal S1 and S2, No murmurs, gallops, rubs Abdomen Normal bowel sounds, Soft, No guarding Extremities No cyanosis, No edema, Normal pulses, No tenderness Skin No Breakdown Neurological Sensation intact, Reflexes 2+ and equal Assessment and Plan Problem List 1. Reactive airway disease Status Acute Onset Date Unknown Plan -Persistent diffuse rhonchi with expiratory wheezes -Status unchanged -Persistent mild hypoxemia requiring supplemental oxygen -Continue DuoNeb, albuterol, and oral prednisone -There was a questino of possible component of heart failure, echo revealed that patient has adequate heart function - her continual wheezing is secondary to inability to clear secretions normally 2. UTI (urinary tract infection) Status Acute Onset Date 11/06/16 Plan -UTI with Escherichia coli sensitive to Levaquin -IV Levaquin -Switch to oral Levaquin in a.m. if stable 3. Pneumonia Status Acute Onset Date Unknown Plan -Chest x-ray with infiltrate -Levaquin 750 mg IV daily -Monitor
[2016-11-11 18:53] VITALS: BP 136/70
--- NOTE | 2016-11-11 20:55 | NUR ---
Pt was transferred from CCU to [facility] around 1809 on w/c. No apparent s/s of pain or SOB. Cj RA well. Is dev delayed and has mentation of 4 y.o. Able to follow some directions but unable to have conversation. Unsteady gait and impulsive, and requires 1-2 person to transfer from bed to BSC/chair. Will cont to monitor.
[2016-11-12 00:07] VITALS: BP 162/72; BP 180/89
[2016-11-12 02:57] VITALS: BP 160/70
--- NOTE | 2016-11-12 06:50 | NUR ---
Pt did not sleep much during the night. O2 sats were at 90% on RA while awake and 94% on 2L nc while trying to sleep. Other VSS, afebrile. Pt still has wet cough and is unable to spit anything up. Pt compliant though sometimes does not understand commands. Takes pills well. Remained in bed, though she did pull off her gown and nc at times.
[2016-11-12 07:12] VITALS: BP 167/86
[2016-11-12 10:54] VITALS: BP 114/60
[2016-11-12 15:06] VITALS: BP 109/71
--- NOTE | 2016-11-12 15:41 | NUR ---
OOB FOR ALL MEALS. NEEDS CUE'S FOR TOILETING Q2 HOURS TO STAY CONTINENT. DEVELOPMENTALLY DELAYED AND CAN FOLLOW SIMPLE VERBAL COMMANDS WITH 1 DIRECTION AT A TIME. CAN BE IMPULSIVE, CHAIR ALARM PLACED FOR SAFETY. NO S/S OF PAIN, DISCOMFORT OR DISTRESS. CALLED [facility] IN [place] AND SPOKE WITH RHEA, A CAREGIVER AT THE HOME, AND REPORTED OFF TO HER. WAITING FOR [facility] TO ARRIVE TO DRIVE PATIENT HOME.
--- NOTE | 2016-11-12 16:31 | DIAGNOSTIC IMAGING REPORT ---
PROCEDURE: US ECHOCARDIOGRAM INDICATION: Congestive heart failure TECHNIQUE: Technically difficult study due to poor patient cooperation. Patient in sinus rhythm during the study. COMPARISON: None FINDINGS: Left ventricle is normal in size and function with ejection fraction estimated at 60%. Wall motion is normal. There is grade 1 diastolic dysfunction. Wall thickness is normal. Right ventricle is normal in size and function. Left atrium normal in size. Right atrium normal in size. Mitral valve structurally normal with trace insufficiency. Tricuspid valve structurally normal with trace insufficiency. Right heart pressures cannot be estimated with the study. Aortic valve trileaflet with mild sclerosis. There is no stenosis or insufficiency. Pulmonic valve is normal in structure and function with trace insufficiency. Pericardium there is a small hemodynamically insignificant anterior pericardial effusion. IMPRESSION: Ascending aorta is normal in size. Accession conclusions normal left ventricular ejection fraction. Grade 1 diastolic dysfunction. All valves normal and function. Small hemodynamically insignificant anterior pericardial effusion.
--- NOTE | 2016-11-12 16:46 | NUR ---
HOPE LINK TO SAMPLE WORKER PATIENT AND TRANSFER HER TO [facility]. ESCORTED OUT VIA WC.
--- NOTE | 2016-11-22 10:00 | Discharge Summary ---
Discharge Summary Report Admit Date 11/06/16 Discharge Date 11/12/16 Admission Diagnosis altered mental status Discharge Diagnosis upper respiratory infection Brief History The patient is a 71-year-old white female with a significant past medical history of developmental delay who presented to [facility] as a transfer patient from [facility] ER secondary to respiratory failure. Secondary to the above, the patient was admitted by Sudhir Stein M.D. for further evaluation and treatment. The history of present illness apparently began on the day of admission when the patient had URI symptoms with associated cough and shortness of breath. Secondary to this, the patient presented to [facility] emergency department[facility] for further evaluation and treatment. Evaluation that time was consistent with viral URI with associated bronchospasm and hypoxemia. Secondary to the above the patient was transferred to [facility] for inpatient evaluation and treatment. Hospital Course Pt was treated with iv antibiotics with good resolution of the infection. The patient had questionable productive cough despite the infection resolving, thus the possibility of chf was entertained. Patient was seen to have a grossly normal echocardiogram. At this time it was decided that the patient could be discharged to her assisted living facility. Patient is currently stable for discharge. General Appearance Alert, Oriented X3, No acute distress HEENT Mucous membran moist/pink Lungs Normal air movement Cardiovascular Normal S1, Normal S2 Abdomen Soft Discharge Instructions/Meds - finish off course of antibiotics - take medications as prescibed - follow up with your pmd as regularly scheduled
--- NOTE | 2016-11-22 10:00 | Discharge Summary ---
Discharge Summary Report Admit Date 11/06/16 Discharge Date 11/12/16 Admission Diagnosis altered mental status Discharge Diagnosis upper respiratory infection Brief History The patient is a 71-year-old white female with a significant past medical history of developmental delay who presented to [facility] as a transfer patient from [facility] ER secondary to respiratory failure. Secondary to the above, the patient was admitted by Sudhir Stein M.D. for further evaluation and treatment. The history of present illness apparently began on the day of admission when the patient had URI symptoms with associated cough and shortness of breath. Secondary to this, the patient presented to [facility] emergency department[facility] for further evaluation and treatment. Evaluation that time was consistent with viral URI with associated bronchospasm and hypoxemia. Secondary to the above the patient was transferred to [facility] for inpatient evaluation and treatment. Hospital Course Pt was treated with iv antibiotics with good resolution of the infection. The patient had questionable productive cough despite the infection resolving, thus the possibility of chf was entertained. Patient was seen to have a grossly normal echocardiogram. At this time it was decided that the patient could be discharged to her assisted living facility. Patient is currently stable for discharge. General Appearance Alert, Oriented X3, No acute distress HEENT Mucous membran moist/pink Lungs Normal air movement Cardiovascular Normal S1, Normal S2 Abdomen Soft Discharge Instructions/Meds - finish off course of antibiotics - take medications as prescibed - follow up with your pmd as regularly scheduled
== END 2016-11-12 16:50 | disposition home or self-care (01) | DRG 152 ==
LOC: CC SRH 07:22 → ACUTE2 SRH 08:20 → CC SRH 11:45 → ACUTE3 SRH 11-08 16:50 → CC SRH 11-10 21:08 → ACUTE2 SRH 11-11 18:46
PROVIDERS: ADMIT Family Medicine
DX: J06.9 Acute upper respiratory infection, unspecified (principal); J18.9 Pneumonia, unspecified organism; E87.1 Hypo-osmolality and hyponatremia; R09.02 Hypoxemia; E83.42 Hypomagnesemia; D69.6 Thrombocytopenia, unspecified; R62.50 Unspecified lack of expected normal physiological development in childhood
CPT/HCPCS: 90004; 90047; 90074; 90098; 90148; 90469; 90616; 91286; 91295; 91320; 91504; 91505; 91556; 92132; 92668; 92670; 92720; 93004; 94139; 94140; 94141; 95059; 95061